=== PATIENT | female | born 1980 | race Caucasian/White ===

== ENCOUNTER 2017-07-04 12:11 | Emergency (ER) | payer OTHER ==
[2017-07-04 12:17] VITALS: O2SAT 99
--- NOTE | 2017-07-04 12:45 | CPEKG ---
Heart Rate: 80 RR Interval: 750 P-R Interval: 136 QRSD Interval: 80 QT Interval: 412 QTC Interval: 476 P Berwind: 37 QRS Berwind: 61 T Wave Berwind: 21 EKG Severity - BORDERLINE ECG - EKG Impression: SINUS RHYTHM EKG Impression: VENTRICULAR PREMATURE COMPLEX EKG Impression: BORDERLINE PROLONGED QT INTERVAL Electronically Signed By: Renita Serrano 05-Jul-2017 23:05:49
[2017-07-04] MEDS ORDERED: HYOSCYAMINE SULFATE 0.125 MG TAB PO ONE ×2 (12:48→13:15)
[2017-07-04] MEDS ORDERED: LIDOCAINE 2% VISCOUS 15 ML UDCUP PO ONE ×2 (12:49→13:15)
[2017-07-04] MEDS ORDERED: MAG HYDROX/AL HYDROX/SIMETH 30 ML UDCUP PO ONE ×2 (12:50→13:15)
--- NOTE | 2017-07-04 13:20 | EDPHY ---
HPI/HX/ROS/PE/MDM Narrative: CHIEF COMPLAINT: Abdominal pain HISTORY OF PRESENT ILLNESS: This patient is a 36 year old female complaining of midepigastric abdominal pain onset suddenly this afternoon. She felt well this morning and went to work as usual. She developed midepigastric discomfort similar to a heartburn sensation and a coworker recommended she try drinking milk. After several sips, her pain escalated from 2 /10 to 10/10 in severity. This felt like a cramp or an intense squeezing sensation. She describes this as the worst stomach pain she has ever had and felt like she could not breathe due to pain. She endorses increased pain with deep inspiration. Her discomfort has waxed and waned. It does not radiate to her chest or back. She has had heartburn once in the past, five years ago, but not so severe and has never had other similar symptoms. She denies eating any unusual foods today. Denies any cardiac history. No family history of cholelithiasis. Her last menstrual period ended two days ago, and was normal. No fever, chills, chest pain, palpitations, vomiting, diarrhea, urinary complaints, headache, lightheadedness. REVIEW OF SYSTEMS: Aside from elements discussed in the HPI, a comprehensive 10-point review of systems was reviewed and is negative. PAST MEDICAL HISTORY: Denies. 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 Social alcohol use. No marijuana use. Lives in [place]. VITAL SIGNS: Reviewed by me GENERAL: Well-developed, well-nourished, resting comfortably in no respiratory distress. HEENT: Atraumatic. Eyes: No icterus, no injection. Mouth: moist mucous membranes. No erythema or lesions. Neck: supple with no adenopathy. LUNGS: Clear to auscultation bilaterally, no wheezes, rhonchi or rales. CARDIAC: Regular rate and rhythm, no rubs, murmurs or gallops. ABDOMEN: Soft, nontender, nondistended, bowel sounds normal. BACK: No CVA tenderness. EXTREMITIES: No trauma. No edema. Range of motion is normal throughout. NEURO: Alert and oriented, grossly nonfocal. SKIN: Warm and dry, no rash. PSYCHIATRIC: Normal mentation, no agitation. Portions of this note were transcribed by a medical assistant secretary. I personally performed a history, physical exam, medical decision making, and confirmed accuracy of information the transcribed note. ED Course: 36 y/o female presents with sudden onset abdominal pain beginning shortly prior to arrival. Abdomen is benign on exam at this time. Administered GI cocktail for symptom relief. 12-LEAD EKG: Please see the full report in [facility]. My interpretation: Sinus rhythm with PVC. Rate 80. The patient feels her pain is considerably relieved following administration of GI cocktail. Considering gastritis, reflux, GERD, peptic ulcer vs pancreatitis vs cholelithiasis/cholecystitis. Plan for US gallbladder. IV established. Plan for labs including CBC, BMP, BHCG, liver, lipase. Plan to administer 1L IV NS. Laboratory studies unremarkable. 14:[address] Landers, radiologist. US shows large gallstone near the gallbladder neck with no apparent obstruction: no wall thickening, no fluid. 14:15 Reassessed patient. Discussed imaging results. Plan to discharge home in good condition with referral to general surgery for further evaluation. She will begin taking Prilosec daily. Follow up and return precautions discussed. She is comfortable with this plan. MDM: After obtaining the patients history and performing an examination, differential diagnosis considered included but was not limited to cholecystitis , gastritis, pancreatitis, kidney stones, urinary tract infections and other causes. - Data Points Imaging Results: Impression: 1. Cholelithiasis. No secondary signs of acute cholecystitis. 2. No biliary dilation or free fluid. Findings discussed with Emergency Department physician, Renita Serrano MD on 07/04/2017 at 14:09. Dictated By: Ismael Landers MD Imaging: Discussed imaging studies w/ call worker person Radiologist Laboratory Results: Laboratory Results 07/04/17 12:35 07/04/17 12:35 Medications Given: Discontinued Medications Al Hydroxide/Mg Hydroxide (Maalox Susp) 30 ml PO EDNOW ONE Stop: 07/04/17 12:51 Last Admin: 07/04/17 12:57 Dose: 30 ml Al Hydroxide/Mg Hydroxide (Maalox Susp) 30 ml PO EDNOW ONE Stop: 07/04/17 13:16 Last Admin: 07/04/17 13:55 Dose: Not Given Hyoscyamine Sulfate (Levsin, Hyomax-Sl) 0.125 mg PO EDNOW ONE Stop: 07/04/17 12:49 Last Admin: 07/04/17 12:57 Dose: 0.125 mg Hyoscyamine Sulfate (Levsin, Hyomax-Sl) 0.25 mg PO EDNOW ONE Stop: 07/04/17 13:16 Last Admin: 07/04/17 13:04 Dose: 0.125 mg Sodium Chloride (Ns) 1,000 mls @ 0 mls/hr IV EDNOW ONE; Wide Open PRN Reason: Protocol Stop: 07/04/17 13:31 Last Admin: 07/04/17 14:01 Dose: 1,000 mls Lidocaine (Lidocaine 2% Viscous) 15 ml PO EDNOW ONE Stop: 07/04/17 13:16 Last Admin: 07/04/17 13:05 Dose: 15 ml General Time Seen by Provider: 07/04/17 13:16 Initial Vital Signs: Initial Vital Signs Temperature (C) 36.4 C 07/04/17 12:15 Heart Rate 88 07/04/17 12:15 Respiratory Rate 20 07/04/17 12:15 Blood Pressure 122/90 H 07/04/17 12:15 O2 Sat (%) 99 07/04/17 12:15 O2 Delivery Mode Room Air Allergies/Adverse Reactions: No Known Allergies Allergy (Unverified 07/04/17 12:15) Home Medications: Medication Instructions Recorded NK [No Known Home Meds] 07/04/17 Departure - Departure Disposition: Home, Routine, Self-Care Clinical Impression: Cholelithiasis Condition: Good Instructions: Gallstones (ED) Additional Instructions: 1. Follow up with Dr. Ennis, general surgeon, for further discussion of your gallstones. Bring the disc with your images to your consult. 2. Take Prilosec, available over the counter, daily as directed on the bottle. 3. Return to the Emergency Department for worsening pain, fever, severe vomiting , change in character or severity of pain or other worsening of condition. Referrals: Maik Ennis MD [Medical Doctor] - As per Instructions Report Scribed for: Renita Serrano Report Scribed by: Modesta Chavez Date of Report: 07/04/17 Time of Report: 13:19
[2017-07-04] MEDS ORDERED: NS 1,000 ML IV ONE (13:30)
[2017-07-04 13:35] LABS: PLATELET COUNT 206 10^3/uL (150-400)
[2017-07-04 14:03] VITALS: BP 122/75; PULSE 79; RESP 18
[2017-07-04 14:45] VITALS: TEMP 98.1
== END 2017-07-04 14:58 | disposition home or self-care (01) ==
DX: K80.20 Calculus of gallbladder without cholecystitis without obstruction (principal); E86.9 Volume depletion, unspecified